=== PATIENT | male | born 1965 | race Two or more races ===

== ENCOUNTER 2018-06-02 07:19 | Emergency (ER) | payer BC ==
[~2018-06-02] VITALS: Ht 170.2 cm; Wt 77.0 kg
[2018-06-02 09:09] VITALS: BP 179/90
== END 2018-06-02 09:10 | disposition home or self-care (01) ==
LOC: ER 08:03
DX: M79.671 Pain in right foot (principal); I12.0 Hypertensive chronic kidney disease with stage 5 chronic kidney disease or end stage renal disease; E11.22 Type 2 diabetes mellitus with diabetic chronic kidney disease; N18.6 End stage renal disease; Z99.2 Dependence on renal dialysis; Z86.73 Personal history of transient ischemic attack (TIA), and cerebral infarction without residual deficits
CPT/HCPCS: 82962; 99282